=== PATIENT | female | born 1995 | race Caucasian/White ===

== ENCOUNTER 2017-07-13 22:20 | Outpatient (CLI) | payer MEDICAID, SELFPAY ==
[2017-07-13 23:23] VITALS: BMI 28.5
[2017-07-13 23:52] LABS: Color, Urine Yellow (Yellow); Glucose, Dipstick Normal (Normal); Ketone-Dipstick Negative (Negative); Leukocyte Esterase-Dipstick 100 /ul (Negative); Nitrite-Dipstick Negative (Negative); Occult Blood-Urine Negative /ul (Negative); Protein-Dipstick Negative (Negative); Specific Gravity, Urine 1.025 (1.002-1.030); Urine Bilirubin Dipstick Negative (Negative); Urine Clarity Sl. Cloudy (Clear); Urine Urobilinogen Normal (Normal)
[2017-07-14 00:33] VITALS: BP 121/76; PULSE 114; RESP 16; TEMP 36; O2SAT 98
--- NOTE | 2017-07-14 09:26 | OB.TRI.NOTE ---
History of Present Illness Date of Service: 07/13/17 Was patient seen by the physician?: No Reason For Visit: BLEEDING Date of Service: 07/13/17 Final BLAIR: 10/13/17 Final BLAIR Source: US <20 weeks Gestational age: 27 Weeks and 0 Days History of Present Illness: 26w6d week 1 para 0 who came in for lower back pain and pain up the right side that happens daily. Abdomen was soft to palpation. Home Medications Medication Instructions Recorded Ondansetron [Zofran Odt] 4 mg PO Q8H PRN PRN #10 tablet 05/08/17 Metoclopramide [Reglan] 10 mg PO 4X/DAY PRN #20 tablet 05/10/17 Allergies iodine Allergy (Verified 07/13/17 23:26) Anaphylaxis latex Allergy (Verified 07/13/17 23:26) Hives shellfish derived Allergy (Verified 07/13/17 23:26) Hives Physical Exam Vitals: Vital Signs Temp Pulse Resp BP Pulse Ox 96.8 F L 114 H 16 121/76 H 98 07/14/17 00:33 07/14/17 00:33 07/14/17 00:33 07/14/17 00:33 07/14/17 00:33 NST - FHR Rate Baby A NST Reactive:: Appropriate for gestational age Impression/Plan Transient contractions at 26+ weeks gestation. UA negative. No contractions noted on monitor. heart tones reassuring. Comfort subsided after observation. Will release to home with routine follow-up. Will send urine for culture and sensitivity.
== END 2017-07-14 00:40 | disposition home or self-care (01) ==
LOC: WPOUT 22:28 → WP 22:29
PROVIDERS: Visit Provider Obstetrics & Gynecology
DX: O26.92 Pregnancy related conditions, unspecified, second trimester (principal); M54.5 Low back pain; Z3A.26 26 weeks gestation of pregnancy
CPT/HCPCS: 59050; 81002; 87086; 87088; 99218; G0378

== ENCOUNTER → 2017-07-20 13:42 | Outpatient (CLI) | payer MEDICAID, SELFPAY ==
[2017-07-20 15:47] LABS: Glucose 70 mg/dL (74-106)
[2017-07-20 15:58] LABS: Hematocrit 32.9 % (37-47); Hemoglobin 11.1 g/dl (12.0-15.0); Mean Corp Hgb Conc 33.7 g/gl (32-36); Mean Corpuscular Hgb 30.2 pg (27.0-32.0); Mean Corpuscular Volume 89.6 fL (81-99); Mean Platelet Vol. 9.3 fl (6.2-12.0); Platelet Count 223 K/mm3 (150-450); RBC Distribution Width CV 13.2 % (11.6-14.6); Red Blood Count 3.67 M/mm3 (4.2-5.4); White Blood Count 7.6 K/mm3 (4.4-11.0)
[2017-07-20 16:08] LABS: Scan Indicated on CBC? Y/N NO
[2017-07-20 16:53] LABS: Hemoglobin A1c 4.7 % (4.2-6.3)
== END ==
PROVIDERS: Visit Provider Obstetrics & Gynecology
DX: Z34.82 Encounter for supervision of other normal pregnancy, second trimester (principal); Z3A.00 Weeks of gestation of pregnancy not specified
CPT/HCPCS: 36415; 82947; 83036; 85027

== ENCOUNTER 2017-08-11 00:02 | Emergency (ER) | payer MEDICAID, SELFPAY ==
[2017-08-11 00:04] VITALS: BP 112/71; PULSE 104; RESP 18; TEMP 36.4; O2SAT 99; BMI 29.9
--- NOTE | 2017-08-11 00:24 | ED.DCSUM_ITS ---
- ER Visit Summary Date of Service: 08/11/17 Chief Complaint: Itchy eyes History of Present Illness: The patient is a 22 F who is 33 weeks presents for eye itchiness. Patient states they began bothering her this evening after she hoped her friend clean her house. She was exposed to the friend's cats and dust. She is concerned she is getting pinkeye. Patient denies any sneezing, fever, cough, vision changes, sore throat, rhinorrhea, discharge or any complaints other than the itchiness of the eyes. Physical Examination: Patient is well-nourished and well-developed in no distress. Mild wateriness to the eyes but no conjunctiva injection, exudate, or chemosis. Vision grossly intact. Chronic strabismus of the left eye. Otherwise extraocular movement intact. No rhinorrhea. No increased work of breathing. Neck is supple and nontender, no lymphadenopathy. Regular rate and rhythm. Gravid abdomen. Remainder of exam unremarkable. Test Results: [] Emergency Department Course and Treatment: Patient's presentation is consistent with allergic conjunctivitis. She was given a dose of Benadryl and a prescription for the same. heart tones were checked given the patient is 33 weeks . She will be discharged home and return precautions given. Treatment Plan: [] Disposition: [] Impression: Allergic conjunctivitis This note was generated with [employer] dictation software. It may contain incorrect words, spelling, and punctuation that were not noted in review of the chart prior to signing ED Disposition - Plan for ED Patient: Chief Complaint: Eye Problem Prescriptions: DiphenhydrAMINE [Benadryl] 25 mg PO Q6H PRN PRN #20 cap PRN Reason: Itching Referrals: Care Physician,No Primary [Primary Care Provider] -
--- NOTE | 2017-08-11 00:26 | ED.DEP ---
ED Disposition - Plan for ED Patient: Disposition: Home or Assisted Living Chief Complaint: Eye Problem Instructions: ED Allergic Conjunctivitis Prescriptions: DiphenhydrAMINE [Benadryl] 25 mg PO Q6H PRN PRN #20 cap PRN Reason: Itching Referrals: Care Physician,No Primary [Primary Care Provider] - Romie Luciano MD [STAFF PHYSICIAN] - 3-5 Days if not improving Additional Instructions: Please use the Benadryl as needed for your eye itchiness. Do not drive or do anything dangerous that requires wakefulness and coordination because the medication may make you sleepy. If any worsening of your condition or any new concerning symptoms, please return to the emergency department immediately for another evaluation.
[2017-08-11] MEDS: DiphenhydrAMINE 25 MG Capsule 50 MG PO (00:53)
[2017-08-11 01:09] VITALS: RESP 18
== END 2017-08-11 01:10 | disposition home or self-care (01) ==
PROVIDERS: Emergency Provider Emergency Medicine
DX: O26.893 Other specified pregnancy related conditions, third trimester (principal); H10.13 Acute atopic conjunctivitis, bilateral; Z3A.33 33 weeks gestation of pregnancy
CPT/HCPCS: 99282

== ENCOUNTER 2017-09-06 13:15 | Outpatient (CLI) | payer MEDICAID, SELFPAY ==
[2017-09-06 13:37] VITALS: BMI 31.4
[2017-09-06 14:25] LABS: Mucous, Urine 0 SEEN /hpf (<or=2+); Red Blood Cells-Urine 0 SEEN /hpf (0-5)
[2017-09-06 14:28] LABS: Color, Urine Yellow (Yellow); Glucose, Dipstick Normal (Normal); Ketone-Dipstick Negative (Negative); Leukocyte Esterase-Dipstick 500 /ul (Negative); Nitrite-Dipstick Negative (Negative); Occult Blood-Urine Negative /ul (Negative); Protein-Dipstick Negative (Negative); Specific Gravity, Urine 1.015 (1.002-1.030); Urine Bilirubin Dipstick Negative (Negative); Urine Clarity Sl. Cloudy (Clear); Urine Urobilinogen Normal (Normal)
[2017-09-06 14:29] LABS: Absolute Lymphocyte Count 1.72 X10^3/ul (0.83-4.51); Absolute Neutrophil Count 7.7 X10^3/uL (2.0-7.7); Basophil# 0.02 X10^3/uL; Basophil% 0.2 % (0-1); Eosinophil# 0.07 X10^3/uL; Eosinophils% 0.7 % (0-5); Hematocrit 29.4 % (37-47); Lymphocyte # 1.72 X10^3/ul (4.0); Lymphocyte % 17.2 % (19-41); Mean Corpuscular Hgb 30.2 pg (27.0-32.0); Mean Corpuscular Volume 88.8 fL (81-99); Mean Platelet Vol. 9.5 fl (6.2-12.0); Monocyte# 0.49 X10^3/uL; Monocyte% 4.9 % (0-10); Neutrophil # 7.68 X10^3/uL (2.7-7.7); Neutrophil % 76.8 % (47-70); POSITIVE COUNT NO; POSITIVE DIFFERENTIAL NO; POSITIVE MORPHOLOGY NO; Platelet Count 180 K/mm3 (150-450); RBC Distribution Width CV 12.8 % (11.6-14.6); RBC Distribution Width SD 39.5 fl (35.1-43.9); Red Blood Count 3.31 M/mm3 (4.2-5.4)
[2017-09-06 14:34] LABS: Bacteria 1+ /hpf (None Seen); Squamous Epithelial Cells - UA 5-10 SEEN /hpf (5-10); White Blood Cells 25-50 SEEN /hpf (0-5)
[2017-09-06 15:02] LABS: ALB/GLOB Ratio 0.7 RATIO (0.9-2.4); AST(SGOT) 12 U/L (15-37); Alanine Aminotransfer ALT/SGPT 12 U/L (13-56); Albumin, Serum 2.6 g/dL (3.2-5.0); Alkaline Phosphatase 111 U/L (45-117); Anion Gap 10 (5-15); BUN 7 mg/dL (7-18); BUN/Creat Ratio 15.5 RATIO (10-20); Calcium,Total 8.6 mg/dL (8.5-10.1); Chloride 110 mmol/L (98-107); Creatinine, Serum 0.45 mg/dL (0.55-1.02); EST Glomerular Filtration Rate 181 mL/min (>60); Est Glom Filt Rate - Afr Amer 219 mL/min (>60); Estimated Creatinine Clearance 187.46 ml/min; Globulin 3.9 g/dL (2.2-4.2); Glucose 100 mg/dL (74-106); Potassium 3.5 mmol/L (3.5-5.1); Protein, Total 6.5 g/dL (6.4-8.2); Sodium Level 142 mmol/L (136-145)
--- NOTE | 2017-09-07 07:53 | OB.TRI.NOTE ---
History of Present Illness Date of Service: 09/06/17 Was patient seen by the physician?: No Reason For Visit: CRAMPING Date of Service: 09/06/17 Final BLAIR: 10/13/17 Gestational age: 34 Weeks and 6 Days History of Present Illness: 22 yo female at 34+ wk presents with CC of cramping, lower back pain, pelvic pressure. Allergies iodine Allergy (Verified 08/11/17 00:04) Anaphylaxis latex Allergy (Verified 08/11/17 00:04) Hives shellfish derived Allergy (Verified 08/11/17 00:04) Hives NST - FHR Rate Baby A Baseline: 140-150s with avg variability. Accels to 180s. Variability:: Moderate Accelerations:: 15 x 15 Decelerations:: None NST Reactive:: Yes, Appropriate for gestational age FHR Category:: Category I Uterine Activity:: no UCs noted. Impression/Plan 34 6/7 wk EGA False labor Check CMP, CBC, UA UA with 1+ bacteria. 500 LE Sent for culture Home. RX keflex 500 mg po TID Keep ofc appt as planned.
== END 2017-09-06 15:23 | disposition home or self-care (01) ==
LOC: WPOUT 13:22 → WP 09-08 06:59
PROVIDERS: Visit Provider Obstetrics & Gynecology
DX: O47.03 False labor before 37 completed weeks of gestation, third trimester (principal); Z3A.34 34 weeks gestation of pregnancy
CPT/HCPCS: 36415; 59025; 59050; 80053; 81001; 85025; 87086; 87088; 99218; G0378

== ENCOUNTER 2017-09-07 21:53 | Emergency (ER) | payer MEDICAID, SELFPAY ==
[2017-09-07 21:54] VITALS: BP 122/76; PULSE 117; RESP 16; TEMP 36.8; O2SAT 98; BMI 31.2
--- NOTE | 2017-09-07 22:42 | US_ITS ---
STUDY: ABDOMINAL ULTRASOUND - RIGHT UPPER QUADRANT REASON FOR VISIT: Female, 22 years old. Back pain with nausea and vomiting, 35 weeks . TECHNIQUE: Ultrasound evaluation of the right upper quadrant was performed with real-time and static mcfadden-scale imaging. TECHNICAL QUALITY: Limited. Examination limited due to the patient?s condition and bowel gas. COMPARISON: None. FINDINGS: Liver: The liver measures 19.1 cm. There is increased echogenicity consistent with fatty infiltration. The bile ducts are within normal limits. There is hepatic color flow. The direction of portal flow is hepatopetal. There is no demonstrated mass lesion. Gallbladder: Normal distended gallbladder. The gallbladder wall measures 3 mm. There is a negative sonographic Mathews's sign. There is no pericholecystic fluid. There are no gallstones. Common Bile Duct (C.B.D.): The common bile duct measures 3 mm. Pancreas: Limited visualization of the head, body and obscured tail of the pancreas. There is normal echogenicity of the pancreas. There is no demonstrated pancreatic mass or cyst. Right Kidney: Normal size of the right kidney. The right kidney measures 12 x 6 x 5 x 6.5 cm. Normal renal cortex. The right cortex measures 2.3 cm. There is no demonstrated renal mass or cyst. There is moderate hydronephrosis of the right kidney. Right renal pelvis of 1.5 cm. US/Abdomen Limited IMPRESSION: Moderate right hydronephrosis, no obstructing calculus detected. Hepatomegaly and mild hepatic steatosis. No gallbladder inflammation, cholelithiasis, biliary obstruction or ascites. Limited visualization of pancreas. Electronically Signed: Gabrielle Simmons MD at 0:25 EDT , Service support ,
--- NOTE | 2017-09-07 22:46 | ED.VISSUMM ---
- ER Visit Summary Date of Service: 09/07/17 Chief Complaint: Vomiting History of Present Illness: The patient is a 22 F who is 34 weeks and 6 days , . Patient presents with vomiting and back pain. She has been having pain on and off for the past week but it has been getting worse over the past couple days. The pain is actually in her right upper quadrant and wraps around to her right mid back. Worse with eating. She vomits immediately after eating. No blood. She has also had some diarrhea. Denies any urinary symptoms. Denies any contractions. Denies bleeding. She does report movements. She was seen at labor and delivery yesterday and told she was anemic. They were also concerned for urine infection, but it sounds like they called her today based on her results and told her to stop her antibiotics. Physical Examination: Afebrile and vital signs unremarkable except for a heart rate of 117. The patient appears uncomfortable but not toxic or in distress. Heart regular. Lungs clear. Abdomen is tender in the right upper quadrant. No guarding or rebound. Gravid abdomen. Skin appears normal in color without jaundice or pallor. No diaphoresis. Calves and pulses unremarkable. Test Results: Laboratory studies, urinalysis, and right upper quadrant ultrasound are pending. Emergency Department Course and Treatment: Patient treated with fluids and Phenergan while awaiting results. Hemoglobin stable at 9.7. CMP unremarkable. Lipase normal. Urinalysis unremarkable. Ultrasound showed a normal gallbladder. She does have hepatomegaly and hepatic steatosis. She has moderate right hydro-. No stone visualized. I believe the stone is unlikely given that she has no sign of infection or blood in her urine. Patient felt better after fluids and Phenergan. heart tones 140. She will be discharged to follow-up with her OB. Treatment Plan: As above Disposition: Discharged Impression: 1. Nausea vomiting This note was generated with [facility] dictation software. It may contain incorrect words, spelling, and punctuation that were not noted in review of the chart prior to signing ED Disposition - Plan for ED Patient: Chief Complaint: Nausea/Vomiting Referrals: Care Physician,No Primary [Primary Care Provider] -
[2017-09-07] MEDS: 0.9% Normal Saline 1,000 ML 1000 ML IV (23:12)
[2017-09-07] MEDS: proMETHazine 25 MG/ML Syringe 6.25 MG IV (23:12)
[2017-09-07 23:25] LABS: Bacteria 0 SEEN /hpf (None Seen); White Blood Cells 0 SEEN /hpf (0-5)
[2017-09-07 23:29] LABS: Color, Urine Yellow (Yellow); Glucose, Dipstick Normal (Normal); Ketone-Dipstick Negative (Negative); Leukocyte Esterase-Dipstick Negative /ul (Negative); Nitrite-Dipstick Negative (Negative); Occult Blood-Urine Negative /ul (Negative); Protein-Dipstick Negative (Negative); Urine Bilirubin Dipstick Negative (Negative); Urine Clarity Clear (Clear); Urine Urobilinogen Normal (Normal); Urine pH 6.5 (5.0 - 8.0)
[2017-09-07 23:33] LABS: Absolute Lymphocyte Count 1.74 X10^3/ul (0.83-4.51); Absolute Neutrophil Count 5.9 X10^3/uL (2.0-7.7); Basophil# 0.01 X10^3/uL; Basophil% 0.1 % (0-1); Eosinophil# 0.09 X10^3/uL; Eosinophils% 1.1 % (0-5); Hemoglobin 9.7 g/dl (12.0-15.0); Lymphocyte # 1.74 X10^3/ul (4.0); Lymphocyte % 20.9 % (19-41); Mean Corp Hgb Conc 33.4 g/gl (32-36); Mean Corpuscular Hgb 29.7 pg (27.0-32.0); Mean Corpuscular Volume 88.7 fL (81-99); Mean Platelet Vol. 9.5 fl (6.2-12.0); Monocyte# 0.59 X10^3/uL; Monocyte% 7.1 % (0-10); Neutrophil % 70.7 % (47-70); Platelet Count 183 K/mm3 (150-450); RBC Distribution Width CV 12.8 % (11.6-14.6); RBC Distribution Width SD 39.4 fl (35.1-43.9); Red Blood Count 3.27 M/mm3 (4.2-5.4); White Blood Count 8.3 K/mm3 (4.4-11.0)
[2017-09-07 23:35] LABS: POSITIVE COUNT NO; POSITIVE DIFFERENTIAL NO; POSITIVE MORPHOLOGY NO
[2017-09-07 23:36] LABS: ALB/GLOB Ratio 0.6 RATIO (0.9-2.4); AST(SGOT) 14 U/L (15-37); Alanine Aminotransfer ALT/SGPT 12 U/L (13-56); Albumin, Serum 2.6 g/dL (3.2-5.0); Alkaline Phosphatase 109 U/L (45-117); Anion Gap 10 (5-15); BUN 8 mg/dL (7-18); BUN/Creat Ratio 20.3 RATIO (10-20); Calcium,Total 8.4 mg/dL (8.5-10.1); Chloride 109 mmol/L (98-107); Creatinine, Serum 0.39 mg/dL (0.55-1.02); EST Glomerular Filtration Rate 211 mL/min (>60); Est Glom Filt Rate - Afr Amer 255 mL/min (>60); Glucose 74 mg/dL (74-106); Lipase 120 U/L (73-393); Potassium 3.7 mmol/L (3.5-5.1); Protein, Total 6.6 g/dL (6.4-8.2); Sodium Level 143 mmol/L (136-145)
[2017-09-07 23:41] LABS: Amorphous Sediment 1+; Mucous, Urine 2+ /hpf (<or=2+); Red Blood Cells-Urine 0-5 SEEN /hpf (0-5); Squamous Epithelial Cells - UA 5-10 SEEN /hpf (5-10)
[2017-09-08 01:26] VITALS: BP 121/74; PULSE 102; RESP 16; O2SAT 97
--- NOTE | 2017-09-08 01:31 | ED.DEP ---
ED Disposition - Plan for ED Patient: Chief Complaint: Nausea/Vomiting Instructions: ED Nausea Vomiting Additional Instructions: Follow up with your OB
[2017-09-08 01:32] VITALS: RESP 18
== END 2017-09-08 01:41 | disposition home or self-care (01) ==
PROVIDERS: Emergency Provider Emergency Medicine
DX: O21.2 Late vomiting of pregnancy (principal); R19.7 Diarrhea, unspecified; Z86.2 Personal history of diseases of the blood and blood-forming organs and certain disorders involving the immune mechanism; Z3A.34 34 weeks gestation of pregnancy
CPT/HCPCS: 76705; 80053; 81001; 83690; 85025; 96374; 99283; J7030

== ENCOUNTER → 2017-09-14 16:53 | Outpatient (CLI) | payer MEDICAID, SELFPAY ==
[2017-09-14 18:55] LABS: Group B Strep DNA By PCR Negative (Negative); Internal Control PASS; Probe Check PASS; Specimen Processing Control PASS
== END ==
PROVIDERS: Visit Provider Obstetrics & Gynecology
DX: Z36.85 Encounter for antenatal screening for Streptococcus B (principal)
CPT/HCPCS: 87081; 87653

== ENCOUNTER → 2017-09-22 10:58 | Outpatient (CLI) | payer MEDICAID, SELFPAY ==
[2017-09-22 12:24] LABS: AST(SGOT) 11 U/L (15-37); Alanine Aminotransfer ALT/SGPT 12 U/L (13-56); Albumin, Serum 2.7 g/dL (3.2-5.0); Alkaline Phosphatase 124 U/L (45-117); Bilirubin, Direct 0.08 mg/dL (0.00-0.30); Globulin 3.8 g/dL (2.2-4.2); Protein, Total 6.5 g/dL (6.4-8.2)
== END ==
PROVIDERS: Visit Provider Obstetrics & Gynecology
DX: L50.9 Urticaria, unspecified (principal)
CPT/HCPCS: 36415; 80076

== ENCOUNTER 2017-10-10 18:15 | Outpatient (CLI) | payer MEDICAID, SELFPAY ==
[2017-10-10 18:23] VITALS: BMI 32.0
[2017-10-10 19:04] LABS: ROM Internal Control Test YES-OK TO RESULT pt. (Internal QC)
[2017-10-10 19:05] LABS: ROM Patient Test Negative (Negative)
--- NOTE | 2017-10-11 07:07 | OB.TRI.NOTE ---
History of Present Illness Date of Service: 10/10/17 Was patient seen by the physician?: No Reason For Visit: R/O LABOR Date of Service: 10/10/17 Final BLAIR: 10/13/17 Final BLAIR Source: US <20 weeks Gestational age: 39 Weeks and 5 Days History of Present Illness: concerned with possible SROM Home Medications Medication Instructions Recorded Ranitidine [Zantac] 150 mg PO BID 10/10/17 Allergies iodine Allergy (Verified 09/07/17 21:58) Anaphylaxis latex Allergy (Verified 09/07/17 21:58) Hives peanut Allergy (Verified 10/10/17 18:30) Anaphylaxis shellfish derived Allergy (Verified 09/07/17 21:58) Hives Physical Exam General: Alert, Oriented x3, Cooperative, No apparent distress Cardiovascular: Regular rate, Regular Rhythm Lungs: Clear to auscultation, Normal air movement Abdomen: Soft, Non Tender, Non-Distended, Gravid, Appropriate for Gestational Age Extremities:: No edema Estimated gestational size: Appropriate for gestational size Presentation: Cephalic Cervix Dilation (cm): 1 Station: -2 NST - FHR Rate Baby A Baseline: 140s Variability:: Moderate Accelerations:: 15 x 15 Decelerations:: None NST Reactive:: Yes, Appropriate for gestational age FHR Category:: Category I Uterine Activity:: Irregular Impression/Plan ROM+ tesitng negative. No cervical change. f/u in the office or prn.
== END 2017-10-10 19:40 | disposition home or self-care (01) ==
LOC: WPOUT 18:20 → WP 18:21
PROVIDERS: Visit Provider Obstetrics & Gynecology
DX: Z34.93 Encounter for supervision of normal pregnancy, unspecified, third trimester (principal); Z3A.39 39 weeks gestation of pregnancy
CPT/HCPCS: 59050; 84112; 99218; G0378

== ENCOUNTER 2017-10-15 07:30 | Inpatient (IN) | payer MEDICAID, SELFPAY ==
[2017-10-15 07:40] VITALS: BMI 32.6
[2017-10-15] MEDS: Lactated Ringers 1,000 ML 50 ML IV ×4 (07:52→21:21)
[2017-10-15 08:14] LABS: Hematocrit 29.7 % (37-47); Hemoglobin 9.7 g/dl (12.0-15.0); Mean Corp Hgb Conc 32.7 g/gl (32-36); Mean Corpuscular Hgb 28.1 pg (27.0-32.0); Mean Corpuscular Volume 86.1 fL (81-99); Mean Platelet Vol. 10.2 fl (6.2-12.0); Platelet Count 185 K/mm3 (150-450); RBC Distribution Width CV 12.9 % (11.6-14.6); Red Blood Count 3.45 M/mm3 (4.2-5.4); White Blood Count 7.7 K/mm3 (4.4-11.0)
[2017-10-15 08:19] LABS: Scan Indicated on CBC? Y/N NO
[2017-10-15] MEDS: Oxytocin 30 units/NS 500 ml 30 UNITS/500 ML IV.SOLN IV (08:33)
[2017-10-15] MEDS: fentaNYL-bupivacaine (epidural) 100 ML BAG EPIDURAL ×2 (11:05→15:42)
--- NOTE | 2017-10-15 12:48 | PCM.PN.BLA ---
Progress Note LABOR PROGRESS NOTE Comfortable w/ epidural AVSS pitocin at 10 mIU/min EFM category I tracing 130-140 avg with accels UCs q 2-4 min with some coupling and spacing. Nearing adeuquate mVUs. CX: /posterior and ROP. softer A/P: Induction at 40 2/7 wk for polyhydramnios. female. Category I tracing. Position changes to facilitate rotation, descent. Continue Pitocin per protocol to adequate mVUs
--- NOTE | 2017-10-15 16:00 | CASEMGMT ---
Social Work Assessment Labor and Delivery Unit Date of Referral: 10/15/2017 Time of Referral: 0830 Referred By: verbal notification from nursing staff; concerned caller from community Date of Intervention: 10/15/17 Time of Intervention: 1600 Reason for Referral: mental health; first time parents; questionable resources History obtained from: medical record and patient/mother of baby (LAURENT) Tiffany Slade Household composition: LAURENT reports herself, father of baby (FOB), a friend whom MOB considers to be an adoptive mother named Lisa Mendieta, and Lisa's adult daughter Lluvia Mendieta are living in Lisa's apartment. MOB reports there are 3 dogs and 2 cats living in the home as well. MOB reports there is sometimes one other person who stays, that Lisa or the other adults look after. Patient's parent/guardian status: LAURENT, who is age 24, reports that has been with reported FOB, Iftikhar Mehta (age 24) for the last 5 years, since February of 2013. MOB denies any form of abuse in relationship with FOB. MOB reports to be delivered this admission is the first child for both LAURENT and FOB. Medical History: MOB is G1, P0 with care starting at 10 weeks gestation. LAURENT reports had severe nausea and vomiting during . Record indicates LAURENT was prescribed a medication pump for the nausea, but this was eventually discontinued due to MOB not returning calls to the infusion providers. Educational Status: LAURENT reports to be working on GED, and only has to pass the math section to obtain this. LAURENT reports completed through the 8th grade, stopping school at that time due to LAURENT's adoptive parents being super anglican and wanted LAURENT to start working. LAURENT reports was usually home schooled or in private [employer] schools, so never had a formal IEP. LAURENT reports hardest subject is math. Financial Status: LAURENT reports WALT has had a job for about a month now at [employer], working from [id number]. LAURENT reports will be financially helped by WALT and Lisa. 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 Supplies: LAURENT reports to have necessary items in multiples including 2 bassinets, 2 [id number], a crib, 2 bed boxes, 4 car seats, 3 months supply of diapers and wipes, bottles, clothing, and a breast pump. MOB reports plan to breast feed infant. Childcare/Caregiver(s): MOB plans to be primary caregiver, but will have help from Lluvia Gonzalez, and WALT. Transportation: MOB reports FOB drives, a cousin to MOB has been helping out, MOB's mental health clinical case manager through [employer] and has also used [employer] transportation help. MOB reports to know there is also transportation through insurance. Programs/Agencies Involved: MOB reports involvement with multiple agencies....[employer] for food and medical; WIC; Michel[facility] at [facility]; counselor Delia Kennedy and Melina Aldana a clinical case manager at [facility]; care center, [employer]; [place] program, and on [facility] waiting list for the last 3 years. Children Services/Legal Issues: MOB denies any legal issues for self or FOB; no children services involvement as an adult; MOB was adopted at the age of 1. Behavioral Health Issues: MOB reports to have history of depression, anxiety and PTSD. MOB denies psychiatric hospitalization or any thoughts, plans, or attempts at self harm. MOB denies any history of harm to others. MOB does have history of trauma at a young age. MOB reports was treated with antidepressants in the past, prescribed by Dr. Reveles at [facility], but 2 years ago went off of all medication. MOB reports that Dr. Reveles, after 3 visits, did not think MOB need medication. MOB denies any illicit substance use history including marijuana, cocaine, heroin, methamphetamines, and narcotic prescriptions. MOB denies alcohol use in though has used socially in the past. MOB denies tobacco use. MOB did have a negative drug screen on 03-19-2017. Family and/or Social Stressors: LAURENT is a first time mother, as is WALT a first time father. MOB reports was unexpected but accepted. MOB reports MOB's parents have been encouraging MOB to make and adoption plan for baby as the parents reportedly do not think MOB should be having a baby out of wedlock. MOB reports limited support from adoptive parents, though MOB reports to get words of encouragement from parents. MOB reports to have a cousin who has hired an commercial attorney so that the cousin can get custody of the baby, should children services get involved and take the baby. MOB reports belief that children services may take the baby since MOB's parents want MOB to do adoption. MOB reports belief her parents may somehow convince others that MOB should not have the baby. LAURENT reports has lived in current home for a couple of months now, that this is temporary until MOB is able save enough for own place. LAURENT states has had 2 homes in the last 12 months, first living with a friend Lori but left this house due to too many cats in the home. care record indicates LAURENT had 3 living situations from February 2016 to February 2017, with one being at [facility]. LAURENT does have mental health history, not on medication at this time, but reports to be in counseling. WALT is reported to have significant mental health history including ADHD, Bipolar disorder, PTSD, and Dissociative Identity Disorder (formerly known as multiple personality disorder). MOB reports that WALT sees Dr. Reveles at [facility], that WALT does pretty well taking medication but sometimes MOB has to remind WALT to take afternoon/evening medications. Support Systems: MOB reports [employer] and Lisa are two primary supports at this time. MOB reports additional support from clinical case manager, [employer], and [employer]. MOB reports some level of connection with [facility]. Additional Information: Per Yady GOLD, who has been caring for LAURENT in labor today, the MOB has been cooperative and pleasant. RN reports FOB tends to interject answers being asked of MOB, and tends to want to share own history as RN was asking for MOB's assessment information. RN reports the stuffed animal that LAURENT has in bed today has an odor of what smells similar to cat urine. This report writer received a call from a woman identifying self as Brie Sanchez, LAURENT's cousin. The cousin reports the call is one of the hardest that has had to make, but is concerned for the safety of the baby. Brie reports concern also for MOB. Brie reports concern that MOB's home situation is less than adequate for a baby, reporting there are 14 people, 3 dogs, 20 cats, and a bearded dragon (reptile) living in a 3 bedroom apartment. Brie reports that MOB has sent text messages to Brie stating plan to lie to hospital staff for fear that children services will become involved. Brie reports was to the home recently and the home was dirty with paths to walk throughout the house. Cousin reports MOB has lived in multiple houses during this , that MOB has only been in current home for 2 weeks, and at one point was living in a home with bed bugs. Brie is not sure if this home has bed bugs or not. The cousin reports concern that both MOB and FOB have significant mental health issues. Brie reports during the recent visit to the home, that FOB was observed to be yelling loudly at everyone. Brie also reports that has given MOB money during this as MOB has been hungry but then the MOB and FOB talked about buying things such as pokemon cards rather than food, other than some bread. Rosmery reports to have an commercial attorney, at MOB's request, for the cousin to take the baby in should children services want to remove baby from MOB's custody. Brie reports just waiting on a home study. Brie reports MOB does have a bassinet for baby, and that MOB has reportedly voiced plan to get 20 diapers a week from care center, with plan for those 20 diapers to last the baby each week. ASSESSMENT: MOB cooperative with social work visit, but did ask this report writer if social work visits in hospital are mandatory. Educated MOB that hospital social work consults are triggered for various reasons and reviewed reasons for visit with MOB today, touching on goal to ensure that both MOB's and baby's needs are being met. MOB eye contact avoidant at times, making brief contact at intervals with this report writer. MOB affect constricted, smiled at times, talkative, but at times hesitated in responses, such as when social services counselor inquired whether there is anyone else living in the home other than who MOB has mentioned today. MOB then voiced that one other person stays sometimes, but does not live in the home. MOB expressed worry about children services coming to take the baby from MOB, with MOB expressing the worry is due to MOB's parents wanting MOB to make an adoption plan. Educated MOB that children services may need to become involved with family, to ensure that MOB and FOB are doing okay with baby and that are able to meet the needs of the baby. Discussed with MOB that children services sometimes has to removed babies, but that alternatives are typically looked at before a decision is made to remove. Educated MOB that social services counselor will be back on Wednesday, after MOB has had some time with the baby to learn care and such. Discussed that social services counselor will talk with MOB and FOB about mental health risk. MOB able to give appropriate responses to topics of shaken baby and safe sleeping. MOB educated to depression and anxiety, touching on risk factors present, and discussing that after baby is born this topic can be readdressed. Talked with nursing staff about likely need for MOB and FOB to have education about general care topics. Talked with recycling crew supervisor about concerns regarding MOB's and FOB's mental health, as well as questionable housing and overall stability, and that for safety of baby, to allow parents more time with baby, receive more education from staff, and to see if additional services are needed, would recommend for safety of baby to stay in hospital through the weekend. PLAN: Social Work to follow and plan to see MOB again on 10-18-17, provided resource information, education on postpartm mental health issues, as well as determine need for any other additional referrals. -JOSLYN Al, GAS TREATER
--- NOTE | 2017-10-15 17:07 | PCM.PN.BLA ---
Progress Note LABOR PROGRESS NOTE Comfortable w/ epidural AVSS Pitocin at 18 mIU/min EFM 130-140s with avg variability UCs q 2-4 mins CX: 6/75 cm on R side of cervix.. 90% effaced on L side of cervix. Direct OP suspected. A/P: 40 2/7 wk EGA Induction. Pitocin after AROM. Progressed to 6 cm. position changes to facilitate rotation, descent. Watch progress.
--- NOTE | 2017-10-15 20:57 | PCM.PN.BLA ---
Progress Note LABOR PROGRESS NOTE Epidural in place. AVSS Pitocin induction after AROM IFM: 140s mod variability. Accels UCs q 2-3 mins CX last RN check at 2004: 7.5 / 90 -1 (was 7 cm at approx 7 pm_ A/P: 40 2/7 wk induction poly. Slower progress now. Watch for CPD. LGA and at prior check ROP to direct OP. Continue labor.
[2017-10-15] MEDS: Mag Hydrox/Al Hydrox/Simeth 30 ML UDC PO (21:30)
--- NOTE | 2017-10-15 22:26 | PCM.PN.BLA ---
Progress Note LABOR PROGRESS NOTE Feeling some pressure still. Appears comfortable w/ epidural. Multiple visitors in room AVSS Pitocin at 18 mIU/min IFM: 140s avg variability Accels. Category I tracing UCs q 2-3 min CX: 8 cm at last RN check. A/P: 40 2/7 wk EGA poly induction. continue induction Watch progress, descent. Very slow progress, but continued
[2017-10-15] MEDS: Oxytocin 30 units/NS 500 ml 30 UNITS/500 ML IV.SOLN 334 UNITS IV (23:25)
--- NOTE | 2017-10-15 23:36 | PCM.OB.VAG ---
Vaginal Delivery Maternal Presentation: Medically Indicated Induction 40 2/7 wk polyhydramnios Method of Induction: Pitocin, Amniotomy Medical Reason for Induction: - - polyhydramnios Amniotic Membrane Rupture Type: Artificial Rupture of Membrane time: 0830 (approx) Amniotic Fluid Description: Clear Final BLAIR: 10/13/17 Final BLAIR Source: US <20 weeks Gestational age: 40 Weeks and 2 Days Date of Procedure: 10/15/17 Pre-Operative Diagnosis: 40 2/7 induction, poly Post-Operative Diagnosis: same Surgery/ Procedure Performed: Vacuum Assisted Vaginal Delivery Type of Anesthesia: Epidural Description of Procedure: Vacuum assisted vaginal delivery, outlet , KELVIN 2/2 FHR deceleration. Duke catheter in place, epidural in place. Head delivered KELVIN. nuchal cord x one reduced at delivered . Posterior shoulder delivered first (R hand at chin), followed by anterior shoulder. Infant to maternal abdomen. bulb suctioned OP and nares. Stimulation. Ap 8/9 weight pending. routine arterial and venous blood gases collected. Cord blood for typing. PP exam; bilateral anterior labial lacerations, 1st deg, hemostatic. Posterior 2nd deg vaginal and perineal laceration repaired under epidural to hemostatic and intact with 3-0 Vicryl. no other lacerations noted. Placenta delivered by spont expulsion, expression 3V cord, normal appearing with small clot adherent. Delivered intact with trailing membranes. EBL 350 cc Ray Aleshia counts correct x two Pt and infant tolerated delivery well. To recovery stable condition. Presentation: Vertex, KELVIN Placental Delivery Description: Spontaneous, Expressed Placenta Disposition: Routine to Lab Cord Vessel Description: 3 Vessels Cord Gases drawn per routine: ABG, VBG Cord Entanglement: Around neck x 1, loose Drain: Duke to straight drain Estimated Blood Loss: 350 A gender: Female (1 minute): 8 (5 minute): 9 Episiotomy Description: None Laceration: Midline, Perineal Extension/lac, Vaginal Extension/lac, 2nd degree - Bilateral anterior labial lacerations also. Medications given after delivery: IV Pitocin Complications: None
--- NOTE | 2017-10-15 23:42 | PCM.DCVAG ---
Discharge Diet: No Restrictions Discharge Activity: May Shower, May Take a Tub Bath May resume sexual activity in: 4-6 weeks Additional Activity Instructions:: Nothing in the vagina for 4-6 weeks. You may return to work/school in 6 weeks. Additional Instructions: If you experience any of the following, contact your healthcare provider. Bleeding that soaks a pad every hour for 2 hours Fever 100.4 or higher Unrelieved abdominal pain Problems urinating (including inability to urinate or burning while urinating). Visual changes Severe headache Flu-like symptoms Pain or redness in one of both of your breasts Pain, warmth, tenderness or swelling in your legs, especially the calf area Frequent nausea and vomiting Symptoms of depression or anxiety If you experience any of the following, call 911 or go to the nearest Emergency Room. Chest pain Problems breathing Seizure activity Partial or complete paralysis of a body part, slurred speech, weakness or drooping of the face, or a sudden inability to walk or hold your balance Allergies/Adverse Reactions: Allergies iodine Allergy (Verified 09/07/17 21:58) Anaphylaxis latex Allergy (Verified 09/07/17 21:58) Hives peanut Allergy (Verified 10/10/17 18:30) Anaphylaxis shellfish derived Allergy (Verified 09/07/17 21:58) Hives Medications to take at Discharge Ranitidine [Zantac] 150 mg PO BID 10/10/17 Pediatric Multivitamin Comb#30 [Gummies Children Multivitamin] 1 each PO 10/15/17 Please Follow Up With: Tiffany Lepe MD - [phone] When: Call to make an appointment with your doctor in 6 weeks. Primary Care Physician: Care Physician,No Primary [Primary Care Provider] - Proposed Discharge Date: 10/18/17
--- NOTE | 2017-10-15 23:43 | DCINST_ITS ---
Discharge Diet: No Restrictions Discharge Activity: May Shower, May Take a Tub Bath May resume sexual activity in: 4-6 weeks Additional Activity Instructions:: Nothing in the vagina for 4-6 weeks. You may return to work/school in 6 weeks. Additional Instructions: If you experience any of the following, contact your healthcare provider. * Bleeding that soaks a pad every hour for 2 hours * Fever 100.4 or higher * Unrelieved abdominal pain * Problems urinating (including inability to urinate or burning while urinating) . * Visual changes * Severe headache * Flu-like symptoms * Pain or redness in one of both of your breasts * Pain, warmth, tenderness or swelling in your legs, especially the calf area * Frequent nausea and vomiting * Symptoms of depression or anxiety If you experience any of the following, call 911 or go to the nearest Emergency Room. * Chest pain * Problems breathing * Seizure activity * Partial or complete paralysis of a body part, slurred speech, weakness or drooping of the face, or a sudden inability to walk or hold your balance Allergies/Adverse Reactions: Allergies iodine Allergy (Verified 09/07/17 21:58) Anaphylaxis latex Allergy (Verified 09/07/17 21:58) Hives peanut Allergy (Verified 10/10/17 18:30) Anaphylaxis shellfish derived Allergy (Verified 09/07/17 21:58) Hives Medications to take at Discharge Ranitidine [Zantac] 150 mg PO BID 10/10/17 Pediatric Multivitamin Comb#30 [Gummies Children Multivitamin] 1 each PO Please Follow Up With: Tifafny Lepe MD - [phone] When: Call to make an appointment with your doctor in 6 weeks. Primary Care Physician: Care Physician,No Primary [Primary Care Provider] - Proposed Discharge Date: 10/18/17
--- NOTE | 2017-10-15 23:45 | PLAC_PTH ---
PATIENT: TIFFANY POLANCO LOC: [facility] U#:[id number] AGE/SX: 22/F ROOM: WP009 RE10/15/[address]: Dr. Tiffany Lepe MD : 1995 BED: 1 DIS: 10/18/2017 SPEC #: [id number] RECD: 10/16/17 01:37 STATUS: CRISTINE DAVE #: [id number] GUY: 10/15/17 23:[address]: Tiffany Lepe DEPT: SURGICAL PATHOLOGY RECD BY: Wade Calderon ENTERED: 10/18/17 07:23 SP TYPE: PLACENTA OTHR DR: No Primary Care Phys Tissues: Placenta, NOS Procedures: Surgery Specimen Level V HEADER OPERATION: Vaginal delivery PRE-OP DIAGNOSIS: Vaginal delivery TISSUE SUBMITTED: Placenta MICROSCOPIC DIAGNOSIS Placenta: Placental disc - third trimester placenta (546 gm). Membranes - no pathologic diagnosis. Umbilical cord - three blood vessels and no pathologic diagnosis. SJ:sushil 10/19/17 MICROSCOPIC DESCRIPTION Slides are reviewed. GROSS DESCRIPTION SPECIMEN: PLACENTA / CLINICAL INFORMATION: A. Weight: 3.818 kg B. Gestational Age: 40 weeks C. Sex: Female PLACENTAL WEIGHT (POST FIXATION): 546 gm PLACENTAL DIMENSIONS: 15 x 16 x 4 cm PLACENTAL SHAPE: Usual ovoid PLACENTAL WEIGHT FOR GESTATIONAL AGE: Within 10-99th percentile MEMBRANES - Present A. Insertion: Marginal B. Site of rupture from edge: 4 cm from edge of placental disc C. Color of membrane: Javed-mcfadden D. Abnormalities: None UMBILICAL CORD - Present A. Color: Javed-mcfadden B. Insertion: Central C. Length: 28 cm D. Diameter: 1 to 1.2 cm E. Number of vessels: Three F. Abnormalities: None PLACENTAL DISC - Present A. Color of surface: Javed-mcfadden B. surface abnormalities: None C. Maternal cotyledons: Intact with minimal tears D. Attached retro placental clot: No clot E. Cut surface: Dark red and spongy F. Lesions: None G. Separate clot: Absent SECTIONS SUBMITTED: 1. Membrane roll 2. Cord, maternal end 3. Cord, end 4. Placental disc, and maternal surfaces 5. Placental disc, and maternal surfaces 6. Placental disc, and maternal surfaces SJ:sushil 10/18/17 TC:4 CPT: 70486
[2017-10-15] MEDS: Oxytocin 30 units/NS 500 ml 30 UNITS/500 ML IV.SOLN 167 UNITS IV (23:55)
[2017-10-16 04:45] VITALS: BP 125/66; PULSE 92; RESP 18; TEMP 37.2; O2SAT 97
--- NOTE | 2017-10-16 05:06 | NURSING ---
pt up sitting in chair denies discomfort and need to void at present.
--- NOTE | 2017-10-16 07:35 | PN.OBGYN_ITS ---
Subjective: PPD#0 to 1 Delivered very late last night Doing OK. C/O soreness at butt and vagina. - Physical Exam General: Alert, Oriented x3, Cooperative, No apparent distress HEENT: Atraumatic Neck: Supple Abdomen: Soft - Fundus firm NT at 1-2 cm superior to umbilicus Musculoskeletal: - - walking around room well. Neurological: Cranial nerves II-XII grossly intact Psych/Mental Status: Normal Affect Vital Signs Temp Pulse Resp BP Pulse Ox 98.9 F 92 18 125/66 H 97 10/16/17 04:45 10/16/17 04:45 10/16/17 04:45 10/16/17 04:45 10/16/17 04:45 Oxygen Delivery Method Room Air Weight: 94.529 kg Body Mass Index (BMI) 32.6 Intake and Output for Last 24 Hours 10/14/17 10/15/17 10/16/17 23:59 23:59 23:59 Intake Total 2295 / 2295 534 / 534 Output Total 1300 / 1300 900 / 900 Balance 995 / 995 -366 / -366 Laboratory Tests Past 24 Hrs 10/15/17 10/15/17 07:50 07:50 WBC 7.7 RBC 3.45 L Hgb 9.7 L Hct 29.7 L MCV 86.1 MCH 28.1 MCHC 32.7 RDW 12.9 RDW Differential 39.0 Plt Count 185 MPV 10.2 Blood Type O POSITIVE Antibody Screen NEGATIVE Medical Necessity - Tobacco Use Smoking Status: Former smoker Assessment/Plan PPD# o to 1 Vacuum assisted vaginal delivery. Induction for poly Stable . Continue care. social services coordinator consultation planned prior to dischg. Plan to keep until Wed 2/ understanding and instruction on infant care. Quality Control Director already in place prior to and during
[2017-10-16 08:00] VITALS: BP 129/73; PULSE 93; RESP 18; TEMP 36.7
--- NOTE | 2017-10-16 12:04 | CASEMGMT ---
SOCIAL WORK: Collaboration with RN, Julia, to confirm that baby will not be discharged over the weekend due to safety concerns regarding living situation. Julia confirms this is accurate. Collaboration with primary Mariana CARTER, who will follow up on Wednesday. Abner MALDONADO,[facility]
[2017-10-16 13:00] VITALS: BP 125/75; PULSE 108; RESP 18; TEMP 37.2
[2017-10-16 16:45] VITALS: BP 120/82; PULSE 110; RESP 18; TEMP 36.4; O2SAT 96
[2017-10-16 20:10] VITALS: BP 98/78; PULSE 101; RESP 18; TEMP 36.4
[2017-10-17 02:00] VITALS: BP 113/80; PULSE 97; RESP 18; TEMP 36.3
--- NOTE | 2017-10-17 06:59 | PCM.PN.OB ---
Subjective: PPD# 1-2 Pleasant. Appears tired. Pt states baby crying all night and she has not been able to sleep. (FOB just waking now and states didn't hear baby prior) Patient has decided to bottle feed. Offered and accepted offer of baby to nursery to allow some rest. - Physical Exam General: Alert, Oriented x3, Cooperative, No apparent distress HEENT: Atraumatic Neck: Supple Abdomen: Soft - Fundus firm NT at 1-2 cm inferior to umbilicus Extremities: No clubbing, No cyanosis, No edema Neurological: Cranial nerves II-XII grossly intact Psych/Mental Status: Normal Affect Vital Signs Temp Pulse Resp BP Pulse Ox 97.4 F L 97 18 113/80 96 10/17/17 02:00 10/17/17 02:00 10/17/17 02:00 10/17/17 02:00 10/16/17 16:45 Oxygen Delivery Method Room Air Weight: 94.529 kg Body Mass Index (BMI) 32.6 Intake and Output for Last 24 Hours 10/15/17 10/16/17 10/17/17 23:59 23:59 23:59 Intake Total 2295 / 2295 534 / 534 Output Total 1300 / 1300 2150 / 2150 Balance 995 / 995 -1616 / -1616 Medical Necessity - Tobacco Use Smoking Status: Former smoker Assessment/Plan PPD# 1 to 2 Vacuum assisted vaginal delivery. Induction for poly Delivered very late, prior to MN on Wednesday night. Stable . Continue care. continue hospital stay. Pt will need additional care and instruction on childcare. social sciences instructor consultation planned prior to dischg. Plan to keep until Wed10/18/17 2/2 understanding and instruction on infant care. Broaching Machine Set Up Operator already in place prior to and during
--- NOTE | 2017-10-17 07:03 | PN.OBGYN_ITS ---
Subjective: PPD# 1-2 Pleasant. Appears tired. Pt states baby crying all night and she has not been able to sleep. (FOB just waking now and states didn't hear baby prior) Patient has decided to bottle feed. Offered and accepted offer of baby to nursery to allow some rest. - Physical Exam General: Alert, Oriented x3, Cooperative, No apparent distress HEENT: Atraumatic Neck: Supple Abdomen: Soft - Fundus firm NT at 1-2 cm inferior to umbilicus Extremities: No clubbing, No cyanosis, No edema Neurological: Cranial nerves II-XII grossly intact Psych/Mental Status: Normal Affect Vital Signs Temp Pulse Resp BP Pulse Ox 97.4 F L 97 18 113/80 96 10/17/17 02:00 10/17/17 02:00 10/17/17 02:00 10/17/17 02:00 10/16/17 16:45 Oxygen Delivery Method Room Air Weight: 94.529 kg Body Mass Index (BMI) 32.6 Intake and Output for Last 24 Hours 10/15/17 10/16/17 10/17/17 23:59 23:59 23:59 Intake Total 2295 / 2295 534 / 534 Output Total 1300 / 1300 2150 / 2150 Balance 995 / 995 -1616 / -1616 Medical Necessity - Tobacco Use Smoking Status: Former smoker Assessment/Plan PPD# 1 to 2 Vacuum assisted vaginal delivery. Induction for poly Delivered very late, prior to MN on Wednesday night. Stable . Continue care. continue hospital stay. Pt will need additional care and instruction on childcare. secondary social studies teacher consultation planned prior to dischg. Plan to keep until Wed 2/2 understanding and instruction on care. Hat Parts Cutter Machine already in place prior to and during
[2017-10-17 09:49] VITALS: BP 103/67; RESP 18; TEMP 36.6
[2017-10-17 14:00] VITALS: BP 128/87; PULSE 85; RESP 18; TEMP 36.4; O2SAT 97
--- NOTE | 2017-10-17 17:41 | NURSING ---
Patient states desire to pump breastmilk and formula feed with bottle at home. Patient has her own breastpump, which she brought to the hospital. Breastpump is assembled and at bedside. Patient encouraged to begin pumping every 3hours for 15-20 minutes in order to stimulate milk production. Given tub and dishsoap to wash pump parts.
[2017-10-17 20:15] VITALS: BP 129/81; PULSE 101; RESP 18; TEMP 36.4
[2017-10-18 03:10] VITALS: BP 124/85; PULSE 96; RESP 18; TEMP 36.3
--- NOTE | 2017-10-18 08:20 | PCM.PROGNOTE ---
Subjective: PPD#2-3 Additional hospital stay due to social issue Doing well. FOB supportive but a heavy sleeper. has been bottle feeding. Thankful only one baby to care for . Declines LARC here but may elect at the pp check Asking if she needs to have the car seat in hospital prior to dischg. Advised yes. - Physical Exam General: Alert, Oriented x3, Cooperative, No apparent distress HEENT: Atraumatic Neck: Supple Abdomen: Soft - Fundus firm NT at inferior to umbilicus Neurological: Cranial nerves II-XII grossly intact Psych/Mental Status: Normal Affect Vital Signs Temp Pulse Resp BP Pulse Ox 97.4 F L 96 18 124/85 H 97 10/18/17 03:10 10/18/17 03:10 10/18/17 03:10 10/18/17 03:10 10/17/17 14:00 Oxygen Delivery Method Room Air Weight: 94.529 kg Body Mass Index (BMI) 32.6 Intake and Output for Last 24 Hours 10/16/17 10/17/17 10/18/17 23:59 23:59 23:59 Intake Total 534 / 534 Output Total 2150 / 2150 Balance -1616 / -1616 Medical Necessity - Tobacco Use Smoking Status: Former smoker Assessment/Plan PPD# 2-3 Vacuum assisted vaginal delivery. Induction for poly Delivered very late, prior to MN on Wednesday night. Stable . Dischg home today after vp digital marketing social media and crm consultation. client services analyst consultation planned prior to dischg. Sound Engineer already in place prior to and during
--- NOTE | 2017-10-18 08:23 | PN_ITS ---
Subjective: PPD#2-3 Additional hospital stay due to social issue Doing well. FOB supportive but a heavy sleeper. has been bottle feeding. Thankful only one baby to care for . Declines LARC here but may elect at the pp check Asking if she needs to have the car seat in hospital prior to dischg. Advised yes. - Physical Exam General: Alert, Oriented x3, Cooperative, No apparent distress HEENT: Atraumatic Neck: Supple Abdomen: Soft - Fundus firm NT at inferior to umbilicus Neurological: Cranial nerves II-XII grossly intact Psych/Mental Status: Normal Affect Vital Signs Temp Pulse Resp BP Pulse Ox 97.4 F L 96 18 124/85 H 97 10/18/17 03:10 10/18/17 03:10 10/18/17 03:10 10/18/17 03:10 10/17/17 14:00 Oxygen Delivery Method Room Air Weight: 94.529 kg Body Mass Index (BMI) 32.6 Intake and Output for Last 24 Hours 10/16/17 10/17/17 10/18/17 23:59 23:59 23:59 Intake Total 534 / 534 Output Total 2150 / 2150 Balance -1616 / -1616 Medical Necessity - Tobacco Use Smoking Status: Former smoker Assessment/Plan PPD# 2-3 Vacuum assisted vaginal delivery. Induction for poly Delivered very late, prior to MN on Wednesday night. Stable . Dischg home today after web content & social media manager consultation. family services worker consultation planned prior to dischg. Coal Tower Operator already in place prior to and during
[2017-10-18 09:00] VITALS: BP 117/78; PULSE 93; RESP 14; TEMP 36.6; O2SAT 97
--- NOTE | 2017-10-18 09:13 | CASEMGMT ---
Social Work Labor and Delivery Unit Received voice message from Brie Sanchez, cousin to patient/mother of baby (MOB), . Per voicemail, MOB told Brie this sign writer hand wanted to meet with Brie today. Consulted with nursing staff to see how MOB and father of baby (FOB) have been doing with baby over the weekend. Per nursing staff, MOB and FOB are requiring much reinforcement on teaching issues related to care of baby such as feeding and swaddling baby. No reported issues per medical record regarding mother/child interactions or bonding. Per nursing staff, MOB is requesting to have a DNA test for baby at this point. Also noted in the chart that MOB is now formula feeding baby, original plan relayed to this sign writer hand was to breast feed. Met with MOB and FOB in room briefly to clarify whether MOB told the cousin of this sign writer hand desiring a meeting with the cousin (which this sign writer hand never requested). Let MOB know that this sign writer hand gets calls at times from people sharing information, but when it comes to calling people back without patient's permission where information gathering could occur, this sign writer hand likes to check with the patient on whether returning calls are okay. MOB states did not tell Brie that this sign writer hand wanted a meeting, only that this sign writer hand had asked about Brie. MOB reports each day Brie has been asking who is taking the baby home, MOB or Brie. MOB reports the baby is mine and planning to take baby home. Issue of children services brought up. Discussed with MOB that if children services gets involved, which is likely, the some of the options are for parents to take baby home and children services to follow to ensure parents are doing okay with care of baby, for a safety plan of baby to another home, or custody. Let MOB and FOB know that at this point there has not been discussion about removal of baby from MOB. Inquired about MOB's feeding plan for baby. MOB reports to be feeding baby every 3 hours, that currently formula feeding but plans to try to breast feed now as well as to pump. This sign writer hand inquired whether there is formula in place, which MOB reports to have some but not the kind baby is eating now. Encouraged MOB to call [facility] this morning. FOB reports to have 60 dollars in wallet and can buy some formula. Informed MOB and FOB that would be back later to go over resources, and if gets and update about children services will also update about this as well. As MOB stating to this sign writer hand that is a bit offended about the cousin's call requesting a meeting, this sign writer hand will not be calling the cousin back at this juncture. The cousin, while has been an informant previously of concerns regarding home situation, has no authority regarding plan nor the right to know protected health information of the MOB and baby, without MOB's permission. Called [facility] ([facility]) Kary Dillon at [phone], extension [phone]. Referral given due to concerns/questions about housing stability for family (cleanliness of home, length of time in home, number of people and animals in 3 bedroom apartment), regarding both MOB and FOB having mental health history, first time parents, needing reinforcement with teaching, MOB being tired and dad not really getting up from sleep to help MOB out, and then MOB frequent changes in how will be feeding baby. Reported what resources MOB and FOB have in place at this time, as well as MOB being aware of local resources. Reported the cousins name and number as well as this cousin reportedly having an machine stonecutter in place if MOB unable to care for the baby. Plan: Await call from [facility] about intention for follow up with referral given today. Plan to meet with MOB and FOB to review resources, review mental health issues, and go over [facility] involvement (if update is known at that time). -JOEL Al, PROGRESSIVE DIE MAKER
[2017-10-18 14:00] VITALS: BP 130/84; PULSE 113; RESP 20; TEMP 36.1; O2SAT 95
--- NOTE | 2017-10-18 14:00 | CASEMGMT ---
Social Work Note Labor and Delivery Unit Summary: Did hear back from Nelida at [facility] ([facility]) and a case will be opened, but [facility] will be making contact with family at home rather than at the hospital. [id number] - Mother of baby (MOB) cousin Brei Sanchez arrived to unit to visit MOB, and after visit presented to nurses station requesting to speak to this filing writer. This filing writer spoke with the cousin Brie and informed that unable to share any information about MOB and baby at this time. Brie expressed understanding of this, but wanted to convey again concerns about MOBs home situation and whether MOB will have adequate help. Brie reports that MOB was asking for Brie to spend the night again at the hospital last evening so as to provide extra help. Brie reports that MOB reportedly shared with Brie that MOB thinks may need help again after home going. Listened to concerns, supportive listening offered, and thanked Brie for sharing concerns. 1345 - Met with MOB in room to discuss home going plans. Feeding: MOB reports feeding baby 2 ounces every 2-3 hours. MOB reports ability to buy formula and plans to call WIC. Supports: MOB reports can call cousin for help, father of baby (FOB), infants paternal grandmother, and friend/adoptive mother Lisa with whom MOB is living with at this time. Infants paternal grandmother present during this conversation, planning to transport MOB and baby home. Grandmother reports able to help provide support to MOB if needed. Safe Sleeping and Shaken Baby: MOB able to give appropriate responses to both subjects. Paternity issues: MOB reports did have DNA testing done as it is MOBs understanding that FOB cannot go on the certificate without a DNA test. MOB denies question about paternity however. Educated MOB that a DNA test is not required due to not being , only if MOB or FOB are uncertain and wish to have the DNA testing done or for need for establishing child support. mood and anxiety disorders: Educated to risk for such and importance of self-care and letting others know if symptoms arise. MOB reports willingness to allow licensed master social worker to arrange for mental health follow up with established counselor Delia Kennedy at [facility]. MOB reports to feel pretty happy right now. Follow up: MOB reports to have pediatric follow up set for baby and has already talked with [facility] worker Michela about babys . Assessment: MOB reporting to have supplies for baby, ability to get formula, intention to follow up with mental health and community agencies already established with. MOB denies any concerns about home situation at this time. Educated MOB that children services will be following up with MOB at home, but that no discussion about removal of infant at this time. MOB smiled and accepted this information without incident. No further questions identified by MOB. Intervention: Arranged appointment at [facility], per verbal stated consent by MOB, for Wednesday10-29-17 at 1130 with Delia Kennedy. mood and anxiety packet given with information and supports available for such. [facility] resource packet given as well, though MOB appears to be connected with many services already. Plan: MOB and baby to home today. [facility] to follow in the community to ensure safe home environment, and that parents are able to meet babys needs in the community. No other services requested or indicated. -JOSLYN Al, MACHINE INSTALLER
[2017-10-19 15:01] LABS: Pathology Specimen OB SEE PATHOLOGY REPORT
== END 2017-10-18 14:30 | disposition home or self-care (01) | DRG 373 ==
PROVIDERS: Admitting Provider Obstetrics & Gynecology; Visit Provider Obstetrics & Gynecology
DX: O40.3XX0 Polyhydramnios, third trimester, not applicable or unspecified (principal); O36.63X0 Maternal care for excessive fetal growth, third trimester, not applicable or unspecified; O69.81X0 Labor and delivery complicated by cord around neck, without compression, not applicable or unspecified; O76 Abnormality in fetal heart rate and rhythm complicating labor and delivery; O70.1 Second degree perineal laceration during delivery; K21.9 Gastro-esophageal reflux disease without esophagitis; Z87.891 Personal history of nicotine dependence; Z3A.40 40 weeks gestation of pregnancy; Z37.0 Single live birth
CPT/HCPCS: 59025; 59050; 85027; 86850; 86900; 88307; 99218; J7120; G0378

== ENCOUNTER → 2018-07-22 13:56 | Outpatient (CLI) | payer MEDICAID, SELFPAY ==
[2018-07-22 17:02] LABS: Chlamydia Trachomatis by PCR Negative (Negative); Neisserai gonorrhoeae by PCR Negative (Negative); Probe Check PASS; Sample Adequacy Control PASS; Specimen Processing Control PASS
== END ==
PROVIDERS: Visit Provider Obstetrics & Gynecology
DX: Z11.3 Encounter for screening for infections with a predominantly sexual mode of transmission (principal)
CPT/HCPCS: 87491; 87591

== ENCOUNTER → 2019-06-29 14:22 | Outpatient (CLI) | payer MEDICAID, SELFPAY ==
[2019-06-29 15:43] LABS: Absolute Lymphocyte Count 1.82 X10^3/uL (0.83-4.51); Basophil# 0.03 X10^3/uL; Basophil% 0.5 % (0-1); Eosinophil# 0.06 X10^3/uL; Hematocrit 39.8 % (37-47); Hemoglobin 13.4 g/dL (12.0-15.0); Lymphocyte # 1.82 X10^3/ul (4.0); Lymphocyte % 28.9 % (19-41); Mean Corp Hgb Conc 33.7 g/dL (32-36); Mean Corpuscular Hgb 28.8 pg (27.0-32.0); Mean Corpuscular Volume 85.6 fL (81-99); Mean Platelet Vol. 10.1 fl (6.2-12.0); Monocyte# 0.38 X10^3/uL; NRBC Flagged by Analyzer 0 % (0-5); Neutrophil # 3.99 X10^3/uL (2.7-7.7); Neutrophil % 63.3 % (47-70); Platelet Count 247 K/mm3 (150-450); RBC Distribution Width CV 12.2 % (11.6-14.6); RBC Distribution Width SD 37.7 fl (35.1-43.9); Red Blood Count 4.65 M/mm3 (4.2-5.4); White Blood Count 6.3 K/mm3 (4.4-11.0)
[2019-06-29 17:19] LABS: HIV - WCH Non-Reactive (Nonreactive)
== END ==
PROVIDERS: Visit Provider Family Medicine
DX: N92.0 Excessive and frequent menstruation with regular cycle (principal); Z11.3 Encounter for screening for infections with a predominantly sexual mode of transmission
CPT/HCPCS: 36415; 85025; 86703

== ENCOUNTER → 2019-08-10 14:37 | Outpatient (CLI) | payer MEDICAID, SELFPAY ==
[2019-08-10 15:56] LABS: Free T3 3.2 pg/mL (2.18-3.98); T4 Free Direct 0.88 ng/dL (0.76-1.46); Thyroid Stim Hormone (TSH) 2.13 uIU/mL (0.358-3.74)
== END ==
PROVIDERS: PCP Family Medicine; Referring Provider Family Medicine; Visit Provider Family Medicine
DX: N92.0 Excessive and frequent menstruation with regular cycle (principal); R61 Generalized hyperhidrosis
CPT/HCPCS: 36415; 84439; 84443; 84481

== ENCOUNTER → 2019-11-09 | Outpatient (CLI) | payer MEDICAID, SELFPAY ==
[2019-11-15 12:07] LABS: Age Gdln ACOG Testing 21-29 (.)
[2019-11-15 13:36] LABS: HPV Genotype 18,45 Aptima N
[2019-11-21 21:49] LABS: HPV Reflexed? NOT INDICATED
== END | disposition home or self-care (01) ==
LOC: LABSPEC 16:14
PROVIDERS: PCP Family Medicine; Referring Provider Obstetrics & Gynecology; Visit Provider Obstetrics & Gynecology
DX: Z12.4 Encounter for screening for malignant neoplasm of cervix (principal)
CPT/HCPCS: 88175; G0145